=== PATIENT | male | born 1945 | race Two or more races ===

== ENCOUNTER 2025-06-23 10:43 | Outpatient (AMB) | payer MEDICARE, OTHER, SELFPAY ==
--- NOTE | 2025-06-23 10:51 | MHC.OFFVIS ---
Intake Visit Reasons: [employer]mn[facility] PD Allergies lisinopril Allergy (Unknown, Verified 06/23/25 10:52) Cough Medication List - Last Reconciled 06/23/25 by Madhuri Gallardo CNP acetaminophen ER (Pain Relief (acetaminophen)) 650 mg PO Q8H amlodipine 2.5 mg PO DAILY aspirin 81 mg PO DAILY losartan 50 mg PO DAILY rosuvastatin 10 mg PO BEDTIME triamcinolone acetonide 0.1% topical BID HPI Comments Details: He was having some dizziness and balance was off at times. One fall this summer when he tripped over something. No difficulty turning in bed or getting up from chair. Tremor in right hand and right leg was about the same, some days better than others. Uses left hand without issues. No functional impairment. No difficulty eating or drinking. Has noticed he is drooling a bit more. No difficulty swallowing. Sleep was up and down. He was interested in starting medication now. TREY scan is positive for PD. He noted intermittent tremor in the left thumb and sometimes the right leg and occasionally the right hand starting around November-December 2023. He says he can control it and it doesn't interfere with any function. There's been no change in his handwriting, which has always been micrographic and difficult to read. He retired as a fast food assistant restaurant manager. No history of difficulty walking, getting in and out of the car, or in and out of bed. No change in his speech. No drooling. No nightmares. [facility] Medical History (Updated 06/23/25 @ 10:55 by Madhuri Gallardo CNP) Parkinson disease, symptomatic Tremor of both hands Collapsed lung Abnormal colonoscopy Psychosexual dysfunction Hypertension Hearing loss Tobacco use disorder Colon polyp Hyperlipidemia COPD (chronic obstructive pulmonary disease) Elevated PSA Thyroid nodule Hiatal hernia Coronary artery calcification Surgical History (Updated 06/07/25 @ 12:46 by Mansoor Araiza MA) H/O vasectomy Family History (Updated 06/07/25 @ 12:58 by Mansoor Araiza MA) Mother Hypertension Father Prostate cancer Brother CAD (coronary artery disease) Brother Cancer Maternal Grandfather Heart attack Daughter Hyperlipidemia Maternal Aunt Stroke Social History (Updated 06/07/25 @ 12:47 by Mansoor Araiza MA) Alcohol intake: former Patient Tobacco Use Status: Former Tobacco user e-Cigarette/Vaping Use: Never Used Review of Systems Const Denies chills, Denies daytime sleepiness, Reports difficulty sleeping, Denies fatigue, Denies fever(s), Denies frequent falls, Denies headache(s), Denies increased appetite, Denies poor appetite, Denies snoring, Denies weakness, Denies weight gain and Denies weight loss Eyes Denies loss of vision ENT Denies vertigo, Reports dizziness, Denies headache(s) and Denies neck pain Card Denies chest pain at rest, Denies chest pain with activity, Denies syncope, Denies leg edema, Denies palpitations, Denies dyspnea and Denies dyspnea on exertion Resp Denies cough, Denies dyspnea, Denies dyspnea on exertion and Denies snoring GI Denies abdominal pain, Denies constipation, Denies heartburn, Denies diarrhea and Denies nausea Denies urinary frequency, Denies urinary incontinence and Denies urinary urgency Musc Denies abnormal gait, Denies back pain, Reports myalgias, Reports arthralgias, Denies neck pain, Denies numbness and Denies tingling Neuro Denies abnormal gait, Denies vertigo, Reports dizziness, Denies syncope, Denies frequent falls, Denies headache(s), Denies lack of coordination, Denies loss of vision, Denies memory loss, Denies numbness, Denies Other visual disturbances, Denies restless legs, Denies seizure-like activity, Denies tingling, Denies paresthesias, Reports tremor(s) and Denies weakness Psych Denies anxiety, Denies depression, Denies auditory hallucinations, Denies memory loss and Denies visual hallucinations Endo Denies fatigue and Denies palpitations Physical Exam Const Other: General Appearance:? normal, in no acute distress. Heart:? S1, S2 normal, no murmurs. Lungs:? clear anteriorly and posteriorly. Musculoskeletal:? normal. Extremities:? no edema. Psych:? alert, oriented, cognitive function intact, cooperative with exam. Neuro Other: Abnormal Neurological Findings:?Intermittent parkinsonian type tremor of the L thumb side to side, intermittent right hand and right leg tremor. Reduced facial expressions and blinking frequency. Mild bradykinesia. Mild cogwheeling rigidity with reinforcement R > L. Mental Status: alert and oriented X 3. Normal attention, orientation, memory, and affect. Cranial Nerves: Pupils are equal, round, and reactive to light. External ocular muscles are intact. Visual lopez are full, no ptosis. Face is symmetrical, no facial weakness or droop. Facial sensations are normal. Tongue protrudes in midline. Palate elevates symmetrically. Shoulder shrugging is normal Motor Examination: Normal muscle tone, bulk and strength. No atrophy or fasciculations. No drift of the extended upper extremities. DTR 2+. Plantars are flexor. Sensory Exam: Normal light touch, temperature, pinprick, vibration, and joint-position sensations. Rhomberg sign is absent. Coordination: No ataxia. No titubation. Gait Exam: Within normal limits. Cerebellar Signs: [id number] is okay. Extrapyramidal System: Tremor as above. Speech: Normal. Results Reviewed Results Reviewed: TREY scan positive with no activity in the putamen and reduced activity in the caudate bilaterally c/w Dopamine depletion Assessment & Plan Assessment & Plan (1) Parkinson disease, symptomatic: Code(s): G20 - Parkinson's disease Category: Medical Plan: He was interested in starting medication now. Start carbidopa-levodopa 25-100mg 1/2 tablet twice a day x1 week, then 1 tablet twice a day (at 7am and 11am), use/side effects reviewed. (2) Tremor: Code(s): R25.1 - Tremor, unspecified Category: Medical Plan . Medications: New carbidopa-levodopa 25-100 mg (Sinemet) 1 tab orally 1/2 tablet twice a day x1 week then 1 tablet twice a day; 180 tabs 1RF 90 days Coding Level of Care Code Est Pt Level 4 (18485) Diagnoses Parkinson disease, symptomatic G20 Tremor R25.1
--- OUTSIDE RECORDS SUMMARY | 2025-06-23 12:55 | XMS_ITS | Clinical Summary ---
Author Organization [place] [address] [address] [facility] Address [address] [place] [phone] Phone Care Team Providers Care Brace Maker Name Role Phone Haris Lopez MD Primary Care Provider Un available Allergies Active Allergy Reactions Criticality Noted Date Comments Lisinopril Other 11/30/2009 cough Medications acetaminophen (TYLENOL 8 HOUR) 650 mg 8 hr tablet Take 1 Tablet by mouth daily as needed for Pain. 06/21/2023 Active aspirin 81 mg EC tablet Take 1 Tab by mouth daily. 06/23/2018 Active triamcinolone (KENALOG) 0.1 % ointment Apply to affected area twice daily x 10 days 30 g 2 08/18/2024 Active amLODIPine (NORVASC) 2.5 mg tablet Take 1 tablet (2.5 mg total) by mouth 1 (one) time each day. 90 each 1 02/15/2025 Active losartan (COZAAR) 50 mg tablet Take 1 tablet (50 mg total) by mouth 1 (one) time each day. 90 each 1 02/15/2025 Active rosuvastatin (CRESTOR) 10 mg tablet Take 1 tablet (10 mg total) by mouth 1 (one) time each day. 90 each 1 02/15/2025 Active Active Problems Problem Noted Date Diagnosed Date Pulmonary nodules 02/15/2025 Assessment & Plan (02/15/2025 9:47 AM EDT): Referral to thoracic surgery placed to follow-up on his lung nodules. Orders: Ambulatory referral to Thoracic Surgery; Future Coronary artery calcification 12/19/2023 Overview (07/01/2024): - Comment of coronary artery calcifications without grating on CT of the chest without contrast performed for lung cancer screening in April 2023 - Has never had anginal symptoms Last Assessment & Plan: I reviewed with Lennox that it is not surprising given his smoking history, age, and risk factors of hypertension and hyperlipidemia that he has coronary artery calcifications. I also reviewed that these likely did not develop overnight-they took decades to build up. That said, he has not had any symptoms suggestive of angina or stroke in the past. At this point, I reviewed that everything we do is to prevent future heart attacks and strokes. How aggressive we want to be is really a shared decision-making issue between himself and his medical providers. To that end, I explained that standard management is aggressive lipid-lowering with statin at maximally tolerated dose. I reviewed that increasing doses further reduce risk. He is hesitant to increase rosuvastatin given that he has had muscle cramps in the past that he suspects are related to the statin. However he is open to the idea. He would like to discuss it with his PCP at his upcoming visit which I think is completely reasonable. For now we will continue Crestor 10 mg along with baby aspirin. Hiatal hernia 08/14/2023 Thyroid nodule 10/04/2022 Assessment & Plan (02/15/2025 9:47 AM EDT): Thyroid ultrasound ordered to be done in April this year. Thyroid levels normal. Orders: US Head Neck Soft Tissue; Future Assessment & Plan (08/18/2024 1:19 PM EST): Stable. Will monitor thyroid levels. Orders: Thyroid stimulating hormone with reflex to free t4 and free t3; Future Elevated PSA 02/14/2018 Overview (07/01/2024): Urology (02/05/18): Followed by Dr. Page. Recent PSA 4.2. Patient would not repeat PSA in 6 months. Discussed potential delay in diagnosis of prostate cancer and progression for any disease Assessment & Plan (08/18/2024 1:19 PM EST): He is being monitored by urology closely for his elevated PSA levels. COPD (chronic obstructive pu lmonary disease) ([facility] V24, [facility] V28) 08/31/2017 Overview (07/01/2024): PFT(08/30): copd/emphysema Hyperlipidemia 09/29/2014 Overview (07/01/2024): Last Assessment & Plan: See above Assessment & Plan (02/15/2025 9:47 AM EDT): Follow low-cholesterol diet. Continue rosuvastatin. Assessment & Plan (08/18/2024 1:19 PM EST): Follow low-cholesterol diet and continue rosuvastatin. Colon polyp 06/19/2013 Overview (07/01/2024): 03/28, repeat in 3 years Transverse myelitis (CMS/HCC V24, CMS/HCC V28) 0 11/30/2012 Overview (07/01/2024): [place] Hearing loss 07/04/2010 Overview (07/01/2024): 06/22/10 - patient saw ENT (Dr. 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 I strongly recommended he have his check his blood pressures at least twice a month to make sure that he is well-controlled at home. I have not made any changes to his regimen today. Assessment & Plan (02/15/2025 9:47 AM EDT): Patient will follow low-sodium diet. Patient will continue current regimen of amlodipine. Assessment & Plan (08/18/2024 1:19 PM EST): Patient follows sodium diet. Continue current med for bladder pain, losartan. Will monitor electrolytes. Orders: Basic metabolic panel; Future Psychosexual dysfunction 06/07/2006 Overview (07/01/2024): IMO update Resolved Problems Problem Noted Date Diagnosed Date Resolved Date Sinusitis chronic, sphenoidal 11/30/2012 01/28/2025 Overview (07/01/2024): See Dr. Baldwin's note Diverticulitis 01/25/2012 01/28/2025 Pneumothorax 05/27/2009 01/28/2025 Overview (07/01/2024): thoracotomy Encounters Date Type Department Care Team Description 04/28/2025 Telephone Lung Screening Program - [address] [id number] Geneva Judge MA from Last 3 Months Immunizations Immunization Administration Dates Next Due Influenza trivalent, 0.5mL ( Fluad) 65yo and older 06/23/2018 Influenza trivalent, 0.5mL, preservative free (Fluarix; FluLaval; Fluzone) ages 6mo and older (Afluria) 3 years and older 05/26/2015,07/18/2012,07/13/2011,05/12 Pneumococcal conjugate 13 va lent (Prevnar 13, PCV13) 2mo and older 09/29/2014 Pneumococcal polysaccharide 23 valent (Pneumovax 23) 2yo and older 12/12/2016 Td Tetanus diptheria (Tdvax) 7yo and older 09/11/2022 Tdap Tetanus diptheria acell ular pertussis (Boostrix; Adacel) 7yo and older 05/27/2009 Surgical History Surgery Date Site/Laterality Comments OTHER SURGICAL HISTORY PROCEDURE: TREATMENT OF COLLAPSED LUNG; COMMENT: x 2 COLONOSCOPY 06/19/13 PROCEDURE: HISTORICAL COLONOSCOPY; COMMENT: adenoma and tics; repeat in [address] [facility] VASECTOMY PROCEDURE: HISTORICAL VASECTOMY COLONOSCOPY 04/02/2017 PROCEDURE: HISTORICAL COLONOSCOPY; COMMENT: polyps: cecal adenoomas; repeat in 3 yrs under propofol Medical History Medical History Date Comments Psychosexual dysfunction, unspecified 06/07/2006 DX:Psychosexual dysfunction, unspecified Pneumothorax 05/27/2009 DX:Pneumothorax Colon polyp 06/19/2013 DX:Colon polyp; COMMENT: Repeat colonoscopy recommended in 6 months at [facility] Hyperlipidemia 09/29/2014 DX:Hyperlipidemi a Thyroid nodule 10/04/2022 DX:Thyroid nodul e Hiatal hernia 08/14/2023 DX:Hiatal hernia Family History Medical History Relation Name Comments Stroke Aunt mat Other cancer Brother 1 unsure of type of cancer Coronary artery disease Brother 2 Hyperlipidemia Daughter Prostate cancer Father Heart attack Maternal Grandfather Hypertension Mother No Known Problems Son 1 No Known Problems Son 2 Relation Name Status Comments Aunt Brother 1 Alive Brother 2 Alive Daughter Father Maternal Grandfather Mother Sister Alive Son 1 Alive Son 2 Alive Social History Tobacco Use Types Packs/Day Years Used Date Smoking Tobacco: Former Cigarettes 1.5 58.1 0 08/12/1959 - 09/12/2017 Smokeless Tobacco: Never Tobacco Cessation:Counseling Given: Not Answered Alcohol Use Standard Drinks/Week Comments Not Currently 0 (1 standard drink = 0.6 oz pur e alcohol) Sex and Gender Information Value Date Recorded Sex Assigned at Not on file Legal Sex Male 2:50 AM EST Gender Identity Not on file Sexual Orientation Not on file Obstetrics History Last Filed Vital Signs Vital Sign Reading Time Taken Comments Blood Pressure 124/72 02/15/2025 9:07 AM EDT Pulse 76 02/15/2025 9:07 AM EDT Temperature 37.1 C (98.7 F) 01/28/2025 1:11 PM EDT Respiratory Rate - - Oxygen Saturation 94% 09/30/2024 9:54 AM EST Inhaled Oxygen Concentration - - Weight 64.8 kg (142 lb 12.8 oz) 02/15/2025 9:07 AM EDT Height 162.6 cm (5' 4 ) 02/15/2025 9:07 AM EDT Body Mass Index 24.51 02/15/2025 9:07 AM EDT Plan of Treatment Upcoming Encounters Date Type Department Care Team (Late st Contact Info) Description 08/18/2025 8:30 AM EST Office Visit Internal Medicine - [facility] [address] [facility] [address] [place] [phone] Lucie Dumont MD [address] [facility] [place] Health Maintenance Due Date Last Done Comments IPV Vaccines (2 of 3 - Adult catch-up series) 10/10/1968 09/12/1968 Zoster Vaccines (1 of 2) 1996 RSV Immunization Adult Patients (1 - 1-dose 75+ series) 2021 Colorectal Cancer Screening: Stool Based Tests (FOBT/FIT) 07/21/2022 Falls Risk Assessment 07/21/2022 Medicare Annual Wellness Visit 07/21/2022 Social Influencers of Health Screening 07/21/2022 Depression Screening 08/12/2024 COVID-19 Vaccine ( season) 2025 Influenza Vaccine (#1) 2025 8, 05/26/2015, 07/18/2012, Additional history exists Lung Cancer Screening (Low Dose CT) 05/05/2025 05/05/2024, 05/09/2023, 05/08/2022, Additional history exists Hypertension/CHF/CAD Annual BMP Blood Test 11/09/2025 11/09/2024, 04/17/2024, 04/17/2024 Cholesterol Screening (Lipid Panel) 04/17/2029 04/17/2024, 04/17/2024 DTaP,Tdap,and Td Vaccines (5 - Td or Tdap) 09/11/2032 09/11/2022, 05/27/2009, 01/14/2000, Additional history exists MMR Vaccines Aged Out 07/05/1998 No longer eligi ble based on patient's age to complete this topic Hepatitis A Vaccines Aged Out 05/14/1999, 07/02/19 98 No longer eligible based on patient's age to complete this topic Meningococcal ACWY Vaccine Aged Out 05/27/1999 N o longer eligible based on patient's age to complete this topic Hepatitis C Screening Completed 04/04/2015 Pneumococcal Vaccine: 50+ Years Completed 12/12/2016, 09/29/2014 HIB Vaccines Aged Out No longer eligi ble based on patient's age to complete this topic HPV Vaccines Aged Out No longer eligi ble based on patient's age to complete this topic Hepatitis B Vaccines Aged Out No long er eligible based on patient's age to complete this topic Meningococcal B Vaccine Aged Out No l onger eligible based on patient's age to complete this topic RSV Immunization Patients Under 20 months Aged Out No longer eligible based on patient's age to complete this topic Varicella Vaccines Aged Out No longer eligible based on patient's age to complete this topic Procedures Procedure Name Priority Date/Time Associated Diagnosis Comments BASIC METABOLIC PANEL Routine 11/09/2024 10:22 AM EDT Hypertension, unspecified type CT LUNG SCREENING LOW DOSE Routine 05/05/2024 5:23 AM EDT Personal history of nicotine dependence LIPID PANEL Routine 04/17/2024 HEPATITIS C SCREENING Routine 04/04/2015 from Last 3 Months or Most Recently Relevant to Health Maintenance Results * (ABNORMAL) Basic metabolic panel (11/09/2024 10:22 AM EDT) Sodium 141 133 - 145 mmol/L LAB CHEMISTRY METHOD 11/09/2024 1:24 PM [facility] Potassium 4.4 3.5 - 5.5 mmol/L LAB CHEMISTRY METHOD 11/09/2024 1:24 PM [facility] Chloride 107 96 - 110 mmol/L LAB CHEMISTRY METHOD 11/09/2024 1:24 PM [facility] CO2 28 21 - 32 mmol/L LAB CHEMISTRY METHOD 11/09/2024 1:24 PM [facility] Anion Gap 6 3 - 11 LAB CHEMISTRY METHOD 11/09/2024 1:24 PM [facility] Glucose 119(H) 70 - 100 mg/dL LAB CHEMISTRY METHOD 11/09/2024 1:24 PM [facility] BUN 22 5 - 25 mg/dL LAB CHEMISTRY METHOD 11/09/2024 1:24 PM [facility] Creatinine 1.10 0.70 - 1.30 mg/dL LAB CHEMISTRY METHOD 11/09/2024 1:24 PM [facility] eGFR 69 >=60 mL/min/1. 73m2 LAB CHEMISTRY METHOD 11/09/2024 1:24 PM EDT [facility] Comment:Calculation based on the Chronic Kidney Disease Epidemiology Collaboration (CKD-EPI) equation refit without adjustment for race. BUN/Creatinine Ratio 20.0 LAB CHEMISTRY METHOD 11/09/2024 1:24 PM EDT [facility] Calcium 9.5 8.5 - 10.5 mg/dL LAB CHEMISTRY METHOD 11/09/2024 1:24 PM EDT [facility] Blood Venous blood specimen / Unknown Venipuncture / Unknown 11/09/2024 10:22 AM EDT 11/09/2024 10:22 AM EDT Haris Lopez MD LAB BLOOD ORDERABLES Shayy greene Result [facility] [address] [place] [address], * CT LUNG SCREENING LOW DOSE (05/05/2024 5:23 AM EDT) Anatomical Region Laterality Modality Computed Tomogra phy 05/04/2024 7:27 AM EDT Narrative 05/05/2024 5:23 AM EDT [facility] Diagnostic Imaging Department [address] [place] [address] Patient: LENNOX MENDOZA D.O.B./Age/Sex: 1945 - 78 - M Unit#: [id number] Location/Status: SPDICATLS/REG CLI Mnemonic/Ordering [facility] Order[place] Physician: CARRIE FGIUEROA MD CT Lung Screening Low Dose - 05/04/24 - 0733 Report Status:Signed Indication: Greater than 20 total pack-year smoking history, asymptomatic former smoker Technique: Low-dose CT scan of the chest obtained as a lung cancer screening study. Multiplanar reformatted images were obtained. Dose reduction technique: ASIR (Adaptive statistical iterative reconstruction) and/or AEC (automated exposure control) DLP: 106.14 mGy-cm COMPARISON: Multiple priors, the most recent dated April 2023. FINDINGS: Lack of intravenous contrast limits evaluation of the mercedez, vascular structures and visualized abdominal viscera. Lungs/airways: Central trachea is patent. Bronchial wall thickening. Emphysematous changes with increased subpleural reticularity in keeping with superimposed pulmonary fibrosis. Biapical pleural-parenchymal scarring. Postsurgical appearance right lung. Increased reticular nodularity in the right lower lobe likely representing new postinfectious/postinflammatory process. Patchy groundglass opacities most significantly in the anterior left upper lobe; similar to prior. Base of the neck, mediastinum, heart, chest wall, vessels: The assessment of hilar lymphadenopathy is difficult without the use of IV contrast. No enlarged mediastinal lymphadenopathy. Thoracic aortic and coronary artery calcifications. Upper abdomen: This study was performed without contrast and with lower than standard dose. These factors reduce the sensitivity for detection of small lesions in the upper abdomen. Cholelithiasis. Bones/soft tissues: Degenerative changes IMPRESSION: No suspicious pulmonary nodules Lung RADS 2: Benign Appearance or Behavior - Continue annual screening with LDCT in 12 months. Dictating Physician: ЕЛЕНА MORGAN MD Electronically Signed by: ЕЛЕНА MORGAN MD Dic Date/Time: 05/05/24509 Sign date/Time: 05/05/24522 Procedure Note Елена Morgan MD - 05/27/2024 [facility] Diagnostic Imaging Department [address] [place] [address] Patient: LENNOX MENDOZA.O.B./Age/Sex: 1945 - 78 - M Unit#: [id number] Location/Status: SPDICATLS/REG CLI Mnemonic/Ordering Site: [facility] Ordering Physician: CARRIE FIGUEROA MD CT Lung Screening Low Dose - 05/04/24732 Report Status:Signed Indication: Greater than 20 total pack-year smoking history,asymptomatic former smoker Technique: Low-dose CT scan of the chest obtained as a lung cancerscreening study. Multiplanar reformatted images were obtained. Dose reductiontechnique: ASIR (Adaptive statistical iterative reconstruction) and/or AEC(automated exposure control) DLP: 106.14 mGy-cm COMPARISON: Multiple priors, the most recent dated April 2023. FINDINGS: Lack of intravenous contrast limits evaluation of the mercedez,vascular structures and visualized abdominal viscera. Lungs/airways: Central trachea is patent. Bronchial wall thickening. Emphysematous changes with increased subpleural reticularity in keepingwith superimposed pulmonary fibrosis. Biapical pleural-parenchymal scarring. Postsurgical appearance right lung. Increased reticular nodularity in theright lower lobe likely representing new postinfectious/postinflammatoryprocess. Patchy groundglass opacities most significantly in the anterior left upperlobe; similar to prior. Base of the neck, mediastinum, heart, chest wall, vessels: The assessmentof hilar lymphadenopathy is difficult without the use of IV contrast. Noenlarged mediastinal lymphadenopathy. Thoracic aortic and coronary artery calcifications. Upper abdomen: This study was performed without contrast and with lowerthan standard dose. These factors reduce the sensitivity for detection ofsmall lesions in the upper abdomen. Cholelithiasis. Bones/soft tissues: Degenerative changes IMPRESSION: No suspicious pulmonary nodules Lung RADS 2: Benign Appearance or Behavior - Continue annual screeningwith LDCT in 12 months. Dictating Physician: ЕЛЕНА MORGAN MD Electronically Signed by: ЕЛЕНА MORGAN MD Dic Date/Time: 05/05/24509 Sign date/Time: 05/05/24522 Result [facility] Carrie Figueroa MD IMG CT PROCEDURES Final Result * Lipid panel (04/17/2024) LDL/HDL Ratio 3 0 - 4 Triglycerides 109 0 - 150 mg/dL Cholesterol 112 0 - 200 mg/dL HDL 41 >=40 mg/dL LDL Cholesterol 50 0 - 100 mg/dL Blood Venous blood specimen / Unknown Result [facility] Sancho Provider LAB BLOOD ORDERABLES Shayy l Result * Hepatitis C Screening (04/04/2015) Pathologist [facility] Hepatitis C Screening Abstracted Result [facility] Sancho Aguero MD HEALTH MAINTENANCE Final Result from Last 3 Months or Most Recently Relevant to Health Maintenance Insurance [employer] Care Teams Brace Maker Relationship Specialty Start Date End Date Haris Lopez MD PCP - General Internal Medicine 06/11/17
== END 2025-06-23 11:17 | disposition home or self-care (01) ==
LOC: HO.HSM 10:43
PROVIDERS: PCP Internal Medicine; Referring Provider Internal Medicine; Visit Provider Registered Nurse
DX: G20.C Parkinsonism, unspecified (principal); R25.1 Tremor, unspecified
CPT/HCPCS: 99214

== ENCOUNTER → 2025-06-23 10:43 | Outpatient (BNVA) | payer MEDICARE, OTHER, SELFPAY | PROVIDERS: PCP Internal Medicine; Referring Provider Internal Medicine; Visit Provider Registered Nurse | DX: G20.C Parkinsonism, unspecified (principal); F02.A18 Dementia in other diseases classified elsewhere, mild, with other behavioral disturbance; Z79.82 Long term (current) use of aspirin; Z87.891 Personal history of nicotine dependence | CPT/HCPCS: 99212 ==